=== PATIENT | female | born 1935 | race Caucasian/White ===

== ENCOUNTER 2018-01-24 02:59 | Emergency (ER) | payer MEDICARE, OTHER ==
[~2018-01-24] VITALS: Ht 157.5 cm; Wt 59.0 kg
[~2018-01-24 02:59] MED LIST: ASPI81CH PO; BENAML10/2 PO; BENAML10/5 PO; BRIMONIDINE 0.15% RIGHTEYE; CEFU500 PO; CLON.2 PO; DEXA2; DORZOPSO; GABA300 PO; LATA.005SO BOTHEYES; MECL12.5 PO; MECL25 PO; METO25ER PO; METO5A PO; MULVITMINF PO; PANT40 PO; POTA8 PO; PROM25; PROM25 PO; Xalatan2.5 ML BOTHEYES
[2018-01-24] MEDS ORDERED: CLON.1 PO (03:18)
[2018-01-24] MEDS ORDERED: LOSA50 PO (03:18)
== END 2018-01-24 04:00 | disposition home or self-care (01) ==
LOC: ER 02:59
DX: I10 Essential (primary) hypertension (principal); Z88.5 Allergy status to narcotic agent; Z88.8 Allergy status to other drugs, medicaments and biological substances; Z79.899 Other long term (current) drug therapy
CPT/HCPCS: 36415; 99282

== ENCOUNTER → 2018-04-28 | Outpatient (CLI) | payer MEDICARE, OTHER ==
[~2018-04-28] MED LIST changes: +CLON.1 PO; +LOSA50 PO
[2018-04-28 17:14] LABS: BASOPHILS ABSOLUTE AUTO 0.04 K/mm3 (0.00-0.23); BASOPHILS PERCENT AUTO 0 % (0-2); EOSINOPHILS ABSOLUTE AUTO 0.07 K/mm3 (0.00-0.68); EOSINOPHILS PERCENT AUTO 1 % (0-6); Hematocrit 41.7 % (33.0-51.0); Hemoglobin 14.5 g/dL (11.5-16.0); IMMATURE GRAN ABSOLUTE AUTO 0.06 K/mm3 (0.00-0.10); IMMATURE GRAN PERCENT AUTO 1 % (0-1); LYMPHOCYTES ABSOLUTE AUTO 1.83 K/mm3 (0.84-5.20); LYMPHOCYTES PERCENT AUTO 18 % (21-46); MONOCYTES PERCENT AUTO 8 % (4-13); Mean Corpuscular HGB Conc 34.8 g/dL (31.5-36.5); Mean Corpuscular Volume 95 fL (80-100); Mean Platelet Volume 12.8 fL (9.1-12.4); NEUTROPHILS ABSOLUTE AUTO 7.35 K/mm3 (1.96-9.15); NEUTROPHILS PERCENT AUTO 72 % (41-73); Platelet Count 159 K/mm3 (150-400); RDW Standard Deviation 48.5 fL (35.1-46.3); Red Blood Cell Count 4.39 M/mm3 (3.80-5.20); White Blood Cell Count 10.15 K/mm3 (4.00-11.30)
[2018-04-28 17:26] LABS: Albumin, Blood 3.5 g/dL (3.4-5.0); Albumin/Globulin Ratio 0.9 (0.8-1.8); Bilirubin, Total 0.4 mg/dL (0.1-1.0); Bun/Creatinine Ratio 20.7 (12.0-20.0); Calcium, Blood 9.1 mg/dL (8.5-10.1); Creatinine, Blood 1.11 mg/dL (0.40-1.00); Globulin, Blood 3.7 g/dL (2.2-4.0); Potassium, Blood 3.5 mmol/L (3.5-5.5); Total Protein, Blood 7.2 g/dL (6.4-8.2)
== END | disposition home or self-care (01) ==
LOC: LAB EV 17:11 → LAB SHORT 17:11
PROVIDERS: Physician Assistant Surgical
DX: R10.9 Unspecified abdominal pain (principal)
CPT/HCPCS: 80053; 82150; 85025

== ENCOUNTER 2020-06-08 03:48 | Observation (INO) | payer OTHER ==
[~2020-06-08] VITALS: Ht 157.5 cm; Wt 64.2 kg
[2020-06-08 04:13] LABS: BASOPHILS ABSOLUTE AUTO 0.06 K/mm3 (0.00-0.23); BASOPHILS PERCENT AUTO 1 % (0-2); EOSINOPHILS ABSOLUTE AUTO 0.15 K/mm3 (0.00-0.68); EOSINOPHILS PERCENT AUTO 2 % (0-6); Hematocrit 44.4 % (33.0-51.0); Hemoglobin 15.4 g/dL (11.5-16.0); IMMATURE GRAN ABSOLUTE AUTO 0.04 K/mm3 (0.00-0.10); IMMATURE GRAN PERCENT AUTO 1 % (0-1); LYMPHOCYTES ABSOLUTE AUTO 3.31 K/mm3 (0.84-5.20); LYMPHOCYTES PERCENT AUTO 41 % (21-46); MONOCYTES PERCENT AUTO 10 % (4-13); Mean Corpuscular HGB 32.6 pg (26.0-34.0); Mean Corpuscular HGB Conc 34.7 g/dL (31.5-36.5); Mean Corpuscular Volume 94 fL (80-100); NEUTROPHILS ABSOLUTE AUTO 3.63 K/mm3 (1.96-9.15); NEUTROPHILS PERCENT AUTO 45 % (41-73); RDW Coefficient Variation 12.7 % (11.7-14.2); RDW Standard Deviation 44.3 fL (35.1-46.3); Red Blood Cell Count 4.72 M/mm3 (3.80-5.20); White Blood Cell Count 7.99 K/mm3 (4.00-11.30)
[2020-06-08 04:14] LABS: Mean Platelet Volume 13.1 fL (9.1-12.4); Platelet Count 148 K/mm3 (150-400)
[2020-06-08 04:27] LABS: Alanine Aminotransfer (ALT/SGP 48 U/L (12-78); Albumin, Blood 3.7 g/dL (3.4-5.0); Albumin/Globulin Ratio 0.9 (0.8-1.8); Alk Phos 89 U/L (50-136); Anion Gap 7 mmol/L (6-16); Aspartate Aminotrans (AST/SGOT 43 U/L (12-37); Bilirubin, Total 0.5 mg/dL (0.1-1.0); Blood Urea Nitrogen 16 mg/dL (8-24); Bun/Creatinine Ratio 18.8 (12.0-20.0); CO2, Blood 25 mmol/L (21-32); Calcium, Blood 9.6 mg/dL (8.5-10.1); Chloride, Blood 112 mmol/L (98-108); Creatinine, Blood 0.85 mg/dL (0.40-1.00); Globulin, Blood 3.9 g/dL (2.2-4.0); Glomerular Filtration Rate >60 (60-); Glucose, Blood 145 mg/dL (70-99); Potassium, Blood 3.4 mmol/L (3.5-5.5); Sodium, Blood 144 mmol/L (136-145); Total Protein, Blood 7.6 g/dL (6.4-8.2); Troponin I <0.015 ng/mL (0.000-0.040)
--- NOTE | 2020-06-08 12:41 | NUR ---
PT ARRIVED TO PCU 4 VIA GURNEY FROM ED. PT A/OX3, PLEASANT AND COOPERATIVE WITH CARE, FOLLOWS COMMANDS WELL, DENIES CHEST PAIN BUT REPORTS RIGHT SHOULDER PAIN, LOW BACK PAIN, AND RIGHT HIP PAIN FROM FREQ FALLS AT HOME, SHE DENIES GETTING DIZZY OR LOOSING CONCIOUSNESS, LUNGS ARE CLEAR A BIT DIM IN BASES, RESP EVEN AND UNLABORED, NO COUGH NOTED, HRIRR, TELE IN PLACE RUNNING AFIB IN THE 60'S, CARDIZEM GTT INFUSING AT 10MLS/HR, TUNRED DOWN TO 5, AND WILL CALL TO DISCONTINUE, NO EDEMA NOTED, PPP+1, CAP REFILL <3SEC, VS STABL, AFEBRILE, IV SITE IS CLEAR AND PATENT, BTX4, ABD FLAT SOFT NONTENDER, VOIDS WITHOUT DIFF, SKIN C/W/D, MAARLENE, EUN, CALL LIGTH IN REACH. ORIENTED TO ROOM LAYOUT AND CALL SYSTEM.
--- NOTE | 2020-06-08 15:45 | NUR ---
pt converted to sr per monitor, pt states she feels better, no complaints. v.s. stable. call light in reach.
--- NOTE | 2020-06-08 18:26 | NUR ---
pt resting in bed, no complaints or acute changes, no needs at this time, call light in reach.
[2020-06-09 04:49] LABS: BASOPHILS ABSOLUTE AUTO 0.05 K/mm3 (0.00-0.23); BASOPHILS PERCENT AUTO 1 % (0-2); EOSINOPHILS ABSOLUTE AUTO 0.13 K/mm3 (0.00-0.68); EOSINOPHILS PERCENT AUTO 2 % (0-6); Hematocrit 40.8 % (33.0-51.0); Hemoglobin 13.5 g/dL (11.5-16.0); IMMATURE GRAN ABSOLUTE AUTO 0.02 K/mm3 (0.00-0.10); IMMATURE GRAN PERCENT AUTO 0 % (0-1); LYMPHOCYTES ABSOLUTE AUTO 2.73 K/mm3 (0.84-5.20); LYMPHOCYTES PERCENT AUTO 41 % (21-46); MONOCYTES ABSOLUTE AUTO 0.72 K/mm3 (0.16-1.47); MONOCYTES PERCENT AUTO 11 % (4-13); Mean Corpuscular HGB 32.1 pg (26.0-34.0); Mean Corpuscular HGB Conc 33.1 g/dL (31.5-36.5); Mean Corpuscular Volume 97 fL (80-100); NEUTROPHILS ABSOLUTE AUTO 2.97 K/mm3 (1.96-9.15); NEUTROPHILS PERCENT AUTO 45 % (41-73); Platelet Count 122 K/mm3 (150-400); RDW Coefficient Variation 13.1 % (11.7-14.2); RDW Standard Deviation 46.5 fL (35.1-46.3); White Blood Cell Count 6.62 K/mm3 (4.00-11.30)
[2020-06-09 04:50] LABS: Mean Platelet Volume 13.3 fL (9.1-12.4)
--- NOTE | 2020-06-09 05:03 | NUR ---
SHIFT SUMMARY NO ACUTE CHANGES THIS SHIFT. PT A&OX4. COOPERATIVE AND PLEASANT. SP02>92% ON RA. TELEMETRY READS SR, HR 60'S-70'S. PT DENIES CP/PRESSURE/SOB. PT DID C/O OF R SHOULDER, R HIP PAIN. REPOSITIONED AND MEDICATED WITH TYLENOL PER EMAR. PT ABLE TO AMBULATE TO BS TO VOID WITH MINIMAL ASSISTANCE. PT SLEPT T/O NIGHT. CALL LIGHT IN REACH, BED ALARM ON. WILL CONTINUE TO MONITOR.
[2020-06-09 05:08] LABS: Anion Gap 8 mmol/L (6-16); Blood Urea Nitrogen 22 mg/dL (8-24); Bun/Creatinine Ratio 21.6 (12.0-20.0); CO2, Blood 23 mmol/L (21-32); Calcium, Blood 9.1 mg/dL (8.5-10.1); Chloride, Blood 114 mmol/L (98-108); Creatinine, Blood 1.02 mg/dL (0.40-1.00); Glomerular Filtration Rate 55 (60-); Glucose, Blood 97 mg/dL (70-99); Magnesium, Blood 2.3 mg/dL (1.6-2.4); Potassium, Blood 3.9 mmol/L (3.5-5.5); Sodium, Blood 145 mmol/L (136-145); Troponin I <0.015 ng/mL (0.000-0.040)
--- NOTE | 2020-06-09 08:02 | NUR ---
pt resting quietly in bed, wakes easily, a/ox2, pleasant and cooperative with care, follows commands well, denies any complaints, reports she slept well last night, states she feels much better, lungs are clear t/o, a bit dim in bases, resp even and unlabored, on r/a, sats are in the 90's, hrr, tele in place running sr per monitor, see strip, no edema noted, ppp+2, cap refill <3sec, vs stable, afebrile, iv site to rfa site clear and patent, btx4, abd flat soft nontender, voids withhout diff, skin c/w/d, maew, trisha, call light in reach.
[2020-06-09] MEDS ORDERED: METO25 PO (09:56)
--- NOTE | 2020-06-09 12:03 | NUR ---
pt has been discharged to home, went over discharge instructions with her, she verbalized understanding, expresses gratitude for care as she is feeling much better. new medications were called into her pharmacy, iv removed intact, she did not want lunch at this time, is speaking with the yue, and waiting on her ride, all her belongings were packed up.
--- NOTE | 2020-06-09 12:13 | NUR ---
Spiritual care visit conducted. Patient is in the DC process but welcomes a spiritual care visit. Patient talks about her life growing up and the painful and challenging situations she encountered. Patient tells me about her experiences with God and how he sustained and protected her. Patient shares about her family and her sabianism ([employer]az[employer] Yazidism). I listen empathically and provide companionship and prayer. Patient responds well and shows signs of being encouraged in her yesenia and having great hopes for her health going forward.
--- NOTE | 2020-06-09 12:45 | NUR ---
PT LEFT VIA WHEELCHAIR WITH DESKTOP SUPPORT CONSULTANT AND HER BELONGINGS.
== END 2020-06-09 12:15 | disposition home or self-care (01) ==
LOC: ER 03:48 → ERHOLD 04:00 → PCU 11:35
PROVIDERS: Emergency Medicine; Internal Medicine; ADMIT Internal Medicine
DX: I48.91 Unspecified atrial fibrillation (principal); E87.6 Hypokalemia; I10 Essential (primary) hypertension; Z88.5 Allergy status to narcotic agent; Z88.8 Allergy status to other drugs, medicaments and biological substances; Z79.899 Other long term (current) drug therapy; Z90.710 Acquired absence of both cervix and uterus
CPT/HCPCS: 36415; 71045; 80048; 80053; 83735; 84443; 84484; 85025; 93005; 93010; 96365; 96366; 96372; 96376; 99285-25; A9270; A9270-GY; G0378; J1650

== ENCOUNTER 2021-03-07 09:56 | Observation (INO) | payer OTHER ==
[~2021-03-07] VITALS: Ht 157.5 cm; Wt 68.0 kg
[~2021-03-07 09:56] MED LIST changes: +METO25 PO
[2021-03-07] MEDS ORDERED: ACET325 PO (10:03)
[2021-03-07 10:58] LABS: BASOPHILS ABSOLUTE AUTO 0.01 K/mm3 (0.00-0.23); BASOPHILS PERCENT AUTO 0 % (0-2); EOSINOPHILS PERCENT AUTO 0 % (0-6); Hematocrit 44.7 % (33.0-51.0); Hemoglobin 15.3 g/dL (11.5-16.0); IMMATURE GRAN ABSOLUTE AUTO 0.03 K/mm3 (0.00-0.10); IMMATURE GRAN PERCENT AUTO 1 % (0-1); LYMPHOCYTES ABSOLUTE AUTO 1.04 K/mm3 (0.84-5.20); LYMPHOCYTES PERCENT AUTO 27 % (21-46); MONOCYTES ABSOLUTE AUTO 0.63 K/mm3 (0.16-1.47); MONOCYTES PERCENT AUTO 17 % (4-13); Mean Corpuscular HGB Conc 34.2 g/dL (31.5-36.5); Mean Corpuscular Volume 96 fL (80-100); Mean Platelet Volume 12.7 fL (9.1-12.4); NEUTROPHILS ABSOLUTE AUTO 2.09 K/mm3 (1.96-9.15); NEUTROPHILS PERCENT AUTO 55 % (41-73); Platelet Count 111 K/mm3 (150-400); RDW Coefficient Variation 13.2 % (11.7-14.2); RDW Standard Deviation 47.4 fL (35.1-46.3); Red Blood Cell Count 4.64 M/mm3 (3.80-5.20)
[2021-03-07 11:10] LABS: Magnesium, Blood 2.3 mg/dL (1.6-2.4)
[2021-03-07 11:15] LABS: Albumin, Blood 3.2 g/dL (3.4-5.0); Albumin/Globulin Ratio 0.9 (0.8-1.8); Bilirubin, Direct 0.1 mg/dL (0.0-0.3); Bilirubin, Indirect 0.2 mg/dL (0.1-0.7); Bilirubin, Total 0.3 mg/dL (0.1-1.0); Bun/Creatinine Ratio 16.4 (12.0-20.0); Calcium, Blood 8.5 mg/dL (8.5-10.1); Creatinine, Blood 1.52 mg/dL (0.40-1.00); Globulin, Blood 3.5 g/dL (2.2-4.0); Potassium, Blood 3.6 mmol/L (3.5-5.5); Total Protein, Blood 6.7 g/dL (6.4-8.2); Troponin I 0.016 ng/mL (0.000-0.040)
[2021-03-07 11:18] LABS: Source, Urine Catheter
[2021-03-07 11:20] LABS: Appearance, Urine Clear (Clear); Bilirubin, Urine Neg (Neg); Blood, Urine 2+ (Neg); Color, Urine Yellow (P-Yellow); Glucose Qualitative, Urine Neg (Neg); Ketones, Urine Neg (Neg); Leukocyte Esterase, Urine Neg (Neg); Nitrite, Urine Neg (Neg); Protein, Urine 1+ (Neg); Specific Gravity, Urine 1.025 (1.003-1.022); Urobilinogen, Urine 1+ (Normal)
[2021-03-07 11:31] LABS: Bacteria Not Seen /hpf; Squamous Epithelial Cells Rare /hpf (Few); White Blood Cells, Urine Not Seen /hpf (0-5)
[2021-03-07] MEDS ORDERED: SULFAMETHOXAZO1 EAC1 PO (13:00)
[2021-03-07] MEDS ORDERED: LATANOPROST2.5 M3 BOTHEYES (13:01)
[2021-03-07] MEDS ORDERED: Nitrofurantoin100 M1 PO (13:01)
[2021-03-07] MEDS ORDERED: DORZOLAMIDE 2%10 M3 RIGHTEYE (13:02)
[2021-03-08 06:12] LABS: Hematocrit 45.4 % (33.0-51.0); Hemoglobin 15.1 g/dL (11.5-16.0); Mean Corpuscular HGB 32.7 pg (26.0-34.0); Mean Corpuscular HGB Conc 33.3 g/dL (31.5-36.5); Mean Corpuscular Volume 98 fL (80-100); Mean Platelet Volume 12.7 fL (9.1-12.4); Platelet Count 113 K/mm3 (150-400); RDW Coefficient Variation 13.1 % (11.7-14.2); RDW Standard Deviation 47.4 fL (35.1-46.3); Red Blood Cell Count 4.62 M/mm3 (3.80-5.20); White Blood Cell Count 3.22 K/mm3 (4.00-11.30)
[2021-03-08 06:34] LABS: Bun/Creatinine Ratio 21.8 (12.0-20.0); Calcium, Blood 7.8 mg/dL (8.5-10.1); Creatinine, Blood 1.19 mg/dL (0.40-1.00); Magnesium, Blood 2.2 mg/dL (1.6-2.4); Potassium, Blood 3.9 mmol/L (3.5-5.5)
[2021-03-08 08:15] LABS: PO2 Arterial 86.9 mmHg (80-100); pH Blood Arterial 7.38 (7.35-7.45)
[2021-03-08] MEDS ORDERED: GUAI600T33 PO (15:14)
[2021-03-08] MEDS ORDERED: DEXA6 PO (15:14)
== END 2021-03-08 17:49 | disposition home health service (06) ==
LOC: ER 09:56 → MEDS 09:57 → ERHOLD 09:57 → MEDS 09:58 → ERHOLD 13:15 → MEDS 13:15 → ER 13:15 → ERHOLD 15:31 → MEDS 15:31
PROVIDERS: Internal Medicine; Nurse Practitioner Acute Care; Student in an Organized Health Care Education/Training Program; ADMIT Internal Medicine
DX: U07.1 COVID-19 (principal); J12.82 Pneumonia due to coronavirus disease 2019; R53.1 Weakness; N39.0 Urinary tract infection, site not specified; N17.9 Acute kidney failure, unspecified; E86.0 Dehydration; I48.0 Paroxysmal atrial fibrillation; I12.9 Hypertensive chronic kidney disease with stage 1 through stage 4 chronic kidney disease, or unspecified chronic kidney disease; N18.9 Chronic kidney disease, unspecified; Z91.81 History of falling; Z66 Do not resuscitate
CPT/HCPCS: 36415; 36600; 71045; 80048; 80053; 81001; 82248; 82803; 82947; 83690; 83735; 84484; 85025; 85027; 93005; 93010; 94761; 94762; 96361; 96372-59; 96374; 97110; 97161; 97165; 97535; 99285-25; A9270; G0378; J1650; J2405; J7030; P9612

== ENCOUNTER 2021-03-18 16:54 | Inpatient (IN) | payer OTHER ==
[~2021-03-18] VITALS: Ht 160 cm; Wt 57.3 kg
[~2021-03-18 16:54] MED LIST changes: +ACET325 PO; +DEXA6 PO; +DORZOLAMIDE 2%10 M3 RIGHTEYE; +GUAI600T33 PO; +LATANOPROST2.5 M3 BOTHEYES; +Nitrofurantoin100 M1 PO; +SULFAMETHOXAZO1 EAC1 PO
[2021-03-18 17:34] LABS: BASOPHILS ABSOLUTE AUTO 0.02 K/mm3 (0.00-0.23); BASOPHILS PERCENT AUTO 0 % (0-2); EOSINOPHILS ABSOLUTE AUTO 0.01 K/mm3 (0.00-0.68); EOSINOPHILS PERCENT AUTO 0 % (0-6); Hematocrit 41.2 % (33.0-51.0); Hemoglobin 14.1 g/dL (11.5-16.0); IMMATURE GRAN ABSOLUTE AUTO 0.13 K/mm3 (0.00-0.10); IMMATURE GRAN PERCENT AUTO 1 % (0-1); LYMPHOCYTES ABSOLUTE AUTO 0.84 K/mm3 (0.84-5.20); LYMPHOCYTES PERCENT AUTO 5 % (21-46); MONOCYTES ABSOLUTE AUTO 1.32 K/mm3 (0.16-1.47); MONOCYTES PERCENT AUTO 8 % (4-13); Mean Corpuscular HGB 32.7 pg (26.0-34.0); Mean Corpuscular HGB Conc 34.2 g/dL (31.5-36.5); Mean Corpuscular Volume 96 fL (80-100); NEUTROPHILS PERCENT AUTO 86 % (41-73); Platelet Count 162 K/mm3 (150-400); RDW Standard Deviation 46.3 fL (35.1-46.3); Red Blood Cell Count 4.31 M/mm3 (3.80-5.20); White Blood Cell Count 16.12 K/mm3 (4.00-11.30)
[2021-03-18 17:35] LABS: Mean Platelet Volume 13.5 fL (9.1-12.4)
[2021-03-18 17:42] LABS: Albumin, Blood 2.5 g/dL (3.4-5.0); Albumin/Globulin Ratio 0.6 (0.8-1.8); Bilirubin, Total 1.2 mg/dL (0.1-1.0); Bun/Creatinine Ratio 30.8 (12.0-20.0); Calcium, Blood 8.3 mg/dL (8.5-10.1); Creatinine, Blood 1.46 mg/dL (0.40-1.00); Globulin, Blood 4.2 g/dL (2.2-4.0); Potassium, Blood 3.8 mmol/L (3.5-5.5); Total Protein, Blood 6.7 g/dL (6.4-8.2); Troponin I 0.017 ng/mL (0.000-0.040)
[2021-03-18 18:40] LABS: Source, Urine Catheter
[2021-03-18 18:47] LABS: Appearance, Urine Clear (Clear); Blood, Urine 3+ (Neg); Color, Urine Yellow (P-Yellow); Glucose Qualitative, Urine Neg (Neg); Ketones, Urine 1+ (Neg); Leukocyte Esterase, Urine 1+ (Neg); Nitrite, Urine Neg (Neg); Protein, Urine 2+ (Neg); Urobilinogen, Urine 2+ (Normal)
[2021-03-18 18:50] LABS: Bilirubin, Urine 1+ (Neg)
[2021-03-18 18:53] LABS: Amorphous Light (0-Heavy); Bacteria Mod /hpf; Squamous Epithelial Cells Few /hpf (Few)
[2021-03-18] MEDS ORDERED: TIMDOROPSO BOTHEYES (23:12)
[2021-03-18] MEDS ORDERED: GUAI600T33 PO (23:13)
--- NOTE | 2021-03-19 00:29 | NUR ---
PATIENT IS A NEW ADMIT FROM THE ED. THREE PERSON TRANSFER FROM [facility] TO BED. ARRIVED ON 6L O2 NC AND RA BASELINE. REPORTS LIVES WITH SON. RECENT PREVIOUS ADMIT WITH COVID 19 AND UTI. AXO 3 AND FORGETFUL. KNOWS PERSON, PLACE AND FOLLOWING DIRECTION. FORGETS YEAR AND PRESIDIENT. TONGUE DRY AND CRACKED. DENIES PAIN AND N/V. ORIENTED TO ROOM AND CALL LIGHT. REPORTS WANTS TO SLEEP AFTER ASSESSMENT AND TO LEAVE TV OFF.
--- NOTE | 2021-03-19 03:51 | NUR ---
SHIFT SUMMARY PATIENT HAD NO ACUTE CHANGES OBSERVED. AXOX 3, FORGETFUL AT TIMES. ON 6L O2 NC STATING 92% AND RA BASELINE. PIV REMAINS INTACT. UNCOLLECTED C-DIFF LAB. VSS/AFEBRILE. DENIES PAIN, SOB, AND N/V. PATIENT ABLE TO SLEEP AFTER ADMIT. CALL LIGHT IN REACH. BED IN LOWEST POSITION AND ALARM ACTIVATED. WILL CONTINUE TO MONITOR UNTIL DAY SHIFT NURSE ASSUMES CARE.
[2021-03-19 05:31] LABS: BASOPHILS ABSOLUTE AUTO 0.02 K/mm3 (0.00-0.23); BASOPHILS PERCENT AUTO 0 % (0-2); EOSINOPHILS PERCENT AUTO 0 % (0-6); Hematocrit 39.2 % (33.0-51.0); Hemoglobin 13.1 g/dL (11.5-16.0); IMMATURE GRAN ABSOLUTE AUTO 0.09 K/mm3 (0.00-0.10); IMMATURE GRAN PERCENT AUTO 1 % (0-1); LYMPHOCYTES ABSOLUTE AUTO 0.46 K/mm3 (0.84-5.20); LYMPHOCYTES PERCENT AUTO 4 % (21-46); MONOCYTES ABSOLUTE AUTO 0.34 K/mm3 (0.16-1.47); MONOCYTES PERCENT AUTO 3 % (4-13); Mean Corpuscular HGB 32.7 pg (26.0-34.0); Mean Corpuscular HGB Conc 33.4 g/dL (31.5-36.5); Mean Corpuscular Volume 98 fL (80-100); NEUTROPHILS ABSOLUTE AUTO 10.16 K/mm3 (1.96-9.15); NEUTROPHILS PERCENT AUTO 92 % (41-73); Platelet Count 148 K/mm3 (150-400); RDW Coefficient Variation 13.1 % (11.7-14.2); Red Blood Cell Count 4.01 M/mm3 (3.80-5.20); White Blood Cell Count 11.07 K/mm3 (4.00-11.30)
[2021-03-19 05:35] LABS: Mean Platelet Volume 12.8 fL (9.1-12.4)
[2021-03-19 05:52] LABS: Albumin, Blood 2.1 g/dL (3.4-5.0); Albumin/Globulin Ratio 0.5 (0.8-1.8); Bilirubin, Total 0.9 mg/dL (0.1-1.0); Calcium, Blood 7.8 mg/dL (8.5-10.1); Creatinine, Blood 1.28 mg/dL (0.40-1.00); Potassium, Blood 4.4 mmol/L (3.5-5.5); Total Protein, Blood 6.1 g/dL (6.4-8.2)
--- NOTE | 2021-03-19 18:19 | NUR ---
PT PLEASEANT AND COOPERATIVE WITH CARE T/O DAY. D/C PLANS DISCUSSED WITH FAMILY TODAY. FAMILY REPORTS THEY WOULD LIKE HER TO RETURN HOME WITH HER ELDEST SON ANGELES UNTIL SHE HAS REGAINED HER STRENGHT AND WELL ENOUGHT TO RETURN TO HER HOME IND. WILL EVAL FOR D/C READINESS TOMORROW
--- NOTE | 2021-03-19 18:31 | NUR ---
DIET CHANGED CHANGED DIET FROM REGULAR TO SOFT BITE SIZE PER PATIENT REQUEST. PATIENT REPORTS HAVING DENTAL ISSUES AND STATES REGULAR DIET IS TOO HARD.
--- NOTE | 2021-03-20 06:45 | NUR ---
SHIFT SUMMARY- PT. MEDICATED PER NA AND STOMACH PAIN. PT. REPORTED GOOD EFFECT. RESTED QUIETLY DURING THE NIGHT, NO APPARENT DISTRESS NOTED. ON 6LNC, VSS. CALL LIGHT WITHIN REACH, SIDE RAILS UPX2, AND BED ALARM ON. WILL CONT TO MONITOR.
--- NOTE | 2021-03-20 10:51 | NUR ---
HOME O2 EVAL RESULTS. PT RESTING ON RA SATS @87%, SATS DROPPED TO 79% ON ROOM AIR TRANSFERING TO CHAIR. PT REQUIRED O2 @7L VIA N/C TO RECOVER AND MAINTAIN SATS AT 88%. PT TRANSFERED BACK TO BED AND RESTING WITH 5L O2 VIA N/C SATS @88%
--- NOTE | 2021-03-20 15:23 | NUR ---
D/C ORDERS RECIEVED AND IMPLEMETED. HOME O2 SET UP AND DELIVERED BY [facility]. D/C INSTRUCTIONS, EDUCATION, MED LIST REVIEWED WITH PT AND SENT HOME FOR FAMILY TO REVIEW. PT VERBALIZED UNDERSTANDING AND AGREES WITH PLAN. PERSONAL BELONGINGS RETURNED AND PT D/C HOME VIA PRIVATE VEHICLE DRIVEN BY HER FAMILY.
== END 2021-03-20 14:40 | disposition home health service (06) | DRG 871 ==
LOC: ER 16:54 → ERHOLD 20:26 → MEDS 23:14
PROVIDERS: Physician Assistant; ADMIT Internal Medicine
PROC: 8E0ZXY6 Isolation (ICD-10-PCS; principal; 2021-03-18)
PROC: 3E0333Z Introduction of Anti-inflammatory into Peripheral Vein, Percutaneous Approach (ICD-10-PCS; 2021-03-18)
DX: A41.89 Other specified sepsis (principal); U07.1 COVID-19; J12.82 Pneumonia due to coronavirus disease 2019; J96.01 Acute respiratory failure with hypoxia; N17.9 Acute kidney failure, unspecified; E87.2 Acidosis; Z66 Do not resuscitate; R65.20 Severe sepsis without septic shock; I48.0 Paroxysmal atrial fibrillation; R74.01 Elevation of levels of liver transaminase levels; R19.7 Diarrhea, unspecified; E86.0 Dehydration; I12.9 Hypertensive chronic kidney disease with stage 1 through stage 4 chronic kidney disease, or unspecified chronic kidney disease; N18.30 Chronic kidney disease, stage 3 unspecified; Z88.5 Allergy status to narcotic agent; Z88.8 Allergy status to other drugs, medicaments and biological substances; Z79.899 Other long term (current) drug therapy; Z98.890 Other specified postprocedural states; Z90.710 Acquired absence of both cervix and uterus
CPT/HCPCS: 36415; 51701; 71045; 80053; 81001; 83605; 84145; 84484; 85025; 87040; 87086; 93005; 93010; 96361; 96374; 99285-25; A9270; J1100; J1650; J2405; J7030